=== PATIENT | female | born 1955 | race Caucasian/White ===

== ENCOUNTER 2025-02-04 16:31 | Emergency (ER) | payer MEDICARE, MEDICAID ==
[~2025-02-04] VITALS: Ht 157.5 cm; Wt 90.0 kg
[2025-02-04 16:35] VITALS: O2SAT 100
[2025-02-04 22:11] VITALS: TEMP 36.9; O2SAT 97
[2025-02-04 22:19] VITALS: BP 149/66; PULSE 68; RESP 18
[2025-02-04] MEDS: MORPHINE SULFATE 4 MG/ML INJ (FOR IV/IM USE) IM ONE (22:19)
[2025-02-04] MEDS ORDERED: NAPR-1176 MT (22:35)
[2025-02-04] MEDS ORDERED: LIDO700A15 TP (22:35)
== END 2025-02-04 22:55 | disposition home or self-care (01) ==
LOC: ER 16:31
DX: M79.605 Pain in left leg (principal); E11.9 Type 2 diabetes mellitus without complications; I10 Essential (primary) hypertension; Z79.899 Other long term (current) drug therapy
CPT/HCPCS: 99284; 73700; 73502; 96372; J2270